=== PATIENT | female | born 2000 | race Caucasian/White ===

== ENCOUNTER 2024-06-18 15:58 | Emergency (ER) | payer BC, SELFPAY ==
[2024-06-18 16:14] VITALS: BP 123/74
[2024-06-18 16:39] LABS: Urine Albumin 2+ (Neg - Trace); Urine Bilirubin Negative (Negative); Urine Character Clear (Clear); Urine Color Yellow; Urine Glucose Negative (Negative); Urine Ketone Negative (Negative); Urine Leukocyte 1+ (Negative); Urine Nitrite Negative (Negative); Urine Occult Blood Negative (Negative); Urine Specific Gravity 1.015 (<1.030); Urine Urobilinogen Negative (Neg - 1+)
[2024-06-18 16:48] LABS: HCG, Serum Qualitative Screen Negative
[2024-06-18 16:50] LABS: ALT (SGPT) 42 U/L (0-35); AST (SGOT) 47 U/L (14-36); Albumin 4.6 g/dl (3.5-5.0); Alkaline Phosphatase 48 U/L (38-126); Blood Urea Nitrogen 15 mg/dl (7-17); Carbon Dioxide 27 mmol/L (22-30); Glucose 93 mg/dl (70-99); Lipase 104 U/L (23-300); Total Bilirubin 0.5 mg/dl (0.2-1.3); Total Protein 7.4 g/dl (6.3-8.2); eGFR > 60.00
[2024-06-18 16:53] LABS: Urine Red Blood Cell 0-2 /HPF (0-2); Urine Squamous Cell >30 /LPF (Few)
[2024-06-18 16:54] LABS: Urine Bacteria Moderate (Negative)
[2024-06-18 17:09] LABS: Chloride 104 mmol/L (98-107); Potassium 4.6 mmol/L (3.5-5.1); Sodium 141 mmol/L (135-145)
--- NOTE | 2024-06-18 17:13 | ED.GENMED ---
History of Present Illness
General
Chief Complaint: Abdominal Pain
Source: patient
Exam Limitations: none
Time Seen by Provider: 06/18/24 16:54
History of Present Illness
History of Present Illness:
23yoF with no significant past medical history presenting for evaluation of diarrhea. Patient started with a stomach bug about 10 days ago while she was traveling to [place]. She had fevers and diarrhea at that time. She developed allergic
reaction while she was in [place] with lip swelling. She was started on a course of steroids and her diarrhea seemed to resolve while taking the steroids. After she stopped the steroid course, her diarrhea returned. She was seen at urgent care
last week for the symptoms. They sent stool testing including a stool culture as well as parasite testing which is still pending. Urine culture was also sent. She was called today and told the results of the urine culture which grew out
25,000-50,000 colonies of Enterococcus and she was prescribed a course of amoxicillin. She continues to have diarrhea and had 5 episodes of diarrhea so far today. She also reports intermittent cramping throughout her lower abdomen that improves
after having a bowel movement. She denies any urinary symptoms including no dysuria, urinary frequency, urgency, flank pain, vomiting. No previous abdominal surgeries. Of note, patient was on multiple courses of antibiotics last month for a UTI.
Phy Exam
General Physical Exam
General Presentation: well appearing and no apparent distress
General age: appears stated age
General Skin: warm and dry
General Habitus: normal
General Mental: alert
ENT Exam
ENT Exam: normocephalic
Pulmonary Exam
Pulmonary Exam: no respiratory distress
Gastrointestinal Exam
Gastrointestinal Exam: normal bowel sounds, non tender, soft and non distended
Neurological Exam
Neurological Exam: alert
Abril Coma Scale
Eye Opening: Spontaneous
Verbal Response: Oriented
Motor Response: Obeys Commands
GCS Total Score: 15
Skin Exam
Skin Exam: normal color and warm/dry
Psychiatric Exam
Psychiatric Exam: normal mood/affect
Course
Orders/Labs/Results
Orders:
Orders
06/18/24 16:19
Test Result ONCE
06/18/24 16:27
Complete Blood Count/With Diff Urgent
Comprehensive Metabolic Panel Urgent
HCG, Serum Qualitative Screen Urgent
Lipase Urgent
Urinalysis Reflex To Culture Urgent
Date Specimen was Collected: 06/18/24
Time Specimen was Collected: 16:19
Urine Microscopic Reflex Cult Urgent
Urine Culture Urgent
DERRICK Source: U
Specimen Description:
Date Specimen was Collected: 06/18/24
Time Specimen was Collected: 16:19
06/18/24 17:12
0.9% Sodium Chloride 1000 ml [Nss] 1,000 ml IV BOLUS
06/18/24 17:38
CDIFF [C difficile Antigen & Toxins] Urgent
DERRICK Source: Feces/Stool
Specimen Description:
Date Specimen was Collected: 06/18/24
Time Specimen was Collected: 17:29
Abnormal Lab Results
06/18/24
16:27
MPV 12.0 H fL
(7.4-10.4)
Lymphocytes % 18.9 L %
(20.5-51.1)
AST 47 H U/L
(14-36)
ALT 42 H U/L
(0-35)
Leukocyte Esterase Rfl 1+ A
(Negative)
Urine Bacteria (Reflex) Moderate A
(Negative)
Urine Albumin (Reflex) 2+ A
(Neg - Trace)
06/18/24 16:27
06/18/24 16:27
Vital Signs
Initial and Last Documented VS:
Initial Vital Signs
Temp Pulse Resp BP Pulse Ox
98.4 F 70 18 123/74 98
06/18/24 16:14 06/18/24 16:14 06/18/24 16:14 06/18/24 16:14 06/18/24 16:14
Last Documented Vital Signs
Temp Pulse Resp BP Pulse Ox
98.4 F 55 18 106/67 98
06/18/24 16:14 06/18/24 18:20 06/18/24 18:20 06/18/24 18:20 06/18/24 18:20
MDM/Problems Addressed
Differential Diagnosis Includes:
23yoF here with diarrhea and abd cramping. Seen at urgent care recently for the same. Started amoxicillin today for a UTI although she denies any urinary symptoms. VSS. She is well appearing in no distress. Abdominal exam is benign. Differential
diagnosis includes but is not limited to: acute diarrhea, viral illness, antibiotic side effect, consider C.diff given recent abx use, doubt appendicitis or acute surgical pathology given benign exam
Initial ED plan: Check CBC, CMP, HCG, UA, and C.diff testing. IV fluid bolus.
*Critical Care Note
Total Time (30-74mins, 75-104mins- exclusive of procedures): Not Applicable
Update Note
Update Note:
Labs reveal a mild transaminitis but are otherwise unremarkable including normal white count, electrolytes, renal function. UA with moderate bacteria but there are >30/LPF squamous epithelial cells suggesting contaminated sample and patient has no
symptoms to suggest UTI. C.diff testing pending. No indication for hospitalization. She is scheduled to return to [place] tomorrow for a 2 week trip. She was advised to f/u with her PCP upon return as well as GI if symptoms persist. ED return
precautions discussed. She was discharged in stable condition.
ED Attending Note
-
Portions of this chart may have been created with voice recognition software.� Occasional wrong word or��sound alike� substitutions may have occurred due to the inherent limitations of voice recognition software.
Discharge Plan
Departure
Patient Disposition: Home (Routine Discharge)
Date of Disposition: 06/18/24
Time of Disposition: 19:04
Patient with high blood pressure during this ER visit?: No
Discharge Problem:
Acute diarrhea
Instructions: Diarrhea in teens and adults
Referrals:
[facility] [Provider Group]
Savannah Salazar, [Active] -
Activity Restrictions/Additional Instructions:
Drink plenty of fluids and eat a bland diet (bananas, rice, applesauce, and toast).
We will call you if your C. difficile testing comes back positive.
Please follow-up with gastroenterology and your family doctor if symptoms persist. Return to the ER with any new or worsening symptoms including fevers.
Interventions
Interventions:
*Risk Screen - Suicide Last Done: 06/18/24 16:14
*General Assessment Last Done: 06/18/24 17:49
*Neglect/Abuse Screening Last Done: 06/18/24 16:14
*ED- Fall Risk Assessment Last Done: 06/18/24 17:49
*ED COVID-19 Vaccine History Last Done: 06/18/24 17:50
*Nursing Disposition Last Done: 06/18/24 20:06
TH-Aurgqy-Wnblssjxyd Assessment Last Done: 06/18/24 17:49
Discharge Date and Time
Discharge Date/Time: 06/18/24 20:07
Print Language: [email or web address]
[2024-06-18] MEDS: NSS 1000 IV (17:47)
[2024-06-18 17:49] VITALS: BMI 22.2
[2024-06-18 18:17] LABS: % Basophils 0.6 % (0-2); % Eosinophils 0.9 % (0-6); % Immature Granulocytes 0.4 % (0-0.5); % Lymphocytes 18.9 % (20.5-51.1); % Monocytes 8.1 % (1.7-9.3); % Neutrophils 71.1 % (42.2-75.2); Absolute Basophils 0.1 10^3/uL (0-0.2); Absolute Eosinophils 0.1 10^3/uL (0-0.7); Absolute Lymphocytes 1.5 10^3/uL (1.2-3.4); Absolute Monocytes 0.6 10^3/uL (0.1-0.6); Absolute Neutrophils 5.5 10^3/uL (1.4-6.5); Hemoglobin 13.4 g/dL (12.0-16.0); Mean Corp Hgb Conc. 33.5 g/dL (33.0-37.0); Mean Corpuscular Hgb 29.7 pg (27.0-31.0); Mean Corpuscular Volume 88.7 fL (81.0-99.0); Nucleated Red Blood Cells % 0 %; Platelet Count 171 10^3/uL (130-400); Red Blood Cell Count 4.51 10^6/uL (4.20-5.40); Red Cell Dist. Width 13.2 % (11.5-14.5); White Blood Cell Count 7.8 10^3/uL (4.8-10.8)
[2024-06-18 18:20] VITALS: BP 106/67
== END 2024-06-18 20:07 | disposition home or self-care (01) ==
LOC: EMR 15:58
PROVIDERS: Student in an Organized Health Care Education/Training Program; EMERGENCY PHYSICIAN Student in an Organized Health Care Education/Training Program
DX: R19.7 Diarrhea, unspecified (principal); Z87.440 Personal history of urinary (tract) infections
CPT/HCPCS: 99284; 96360; 80053; 81003; 81015; 83690; 84703; 85025; 87086; 87324; 87449